=== PATIENT | female | born 1990 | race African-American/Black ===

== ENCOUNTER 2024-10-23 12:01 | Emergency (ER) | payer BC ==
[~2024-10-23] VITALS: Ht 157.5 cm; Wt 81.6 kg
[2024-10-23 12:18] VITALS: O2SAT 99
[2024-10-23 13:14] LABS: CHLORIDE 105 mEq/L (98-107); DIFFERENTIAL COMMENT 0; EOSINOPHILS % 1.4 % (0.0-5.0); HEMATOCRIT. 31.9 % (36.0-48.0); HEMOGLOBIN. 9.7 g/dL (12.0-16.0); LYMPHOCYTES % 29.4 % (20.0-50.0); MEAN CORPUSCULAR HEMOGLOBIN 22.3 pg (28.0-32.0); MEAN CORPUSCULAR HGB CONC 30.6 g/dL (31.0-37.0); MEAN CORPUSCULAR VOLUME 72.8 fL (81.0-99.0); MEAN PLATELET VOLUME 8.1 fl (7.4-10.4); MONOCYTES % 6.4 % (2.0-8.0); NEUTROPHILS % 61.8 % (40.0-76.0); PLATELET 428 x1000/uL (130-400); POTASSIUM 3.6 mEq/L (3.5-5.1); RED BLOOD CELL COUNT 4.37 mill/uL (4.2-5.4); RED CELL DISTRIBUTION WIDTH 16.6 % (11.6-14.6); SODIUM 136 mEq/L (136-145); WHITE BLOOD COUNT 8.1 x1000/uL (4.5-11.0)
[2024-10-23 13:15] LABS: CALCIUM 8.7 mg/dL (8.7-10.4); CARBON DIOXIDE 23 mEq/L (21-32)
[2024-10-23 13:17] LABS: CLARITY URINE CLOUDY (CLEAR); COLOR URINE YELLOW (YELLOW); GLUCOSE URINE 3+ (NEGATIVE); KETONES URINE TRACE (NEGATIVE); LEUKOCYTE ESTERASE URINE 1+ (NEGATIVE); NITRITE URINE NEGATIVE (NEGATIVE); OCCULT BLOOD URINE NEGATIVE (NEGATIVE); PH URINE 5.5 (4.5-8.0); PROTEIN URINE 1+ (NEGATIVE); SPECIFIC GRAVITY URINE 1.032 (1.005-1.030)
[2024-10-23 13:20] LABS: CREATININE 0.5 mg/dL (0.6-1.0); GLUCOSE 140 mg/dL (70-105); HCG SCREEN POSITIVE; UREA NITROGEN BLOOD 6 mg/dL (9-23)
[2024-10-23 13:55] VITALS: BP 142/98; PULSE 96; RESP 16; TEMP 36.9; O2SAT 100
[2024-10-23 14:10] LABS: MUCUS URINE TRACE /lpf (< = 2+); SQUAMOUS EPITHELIAL CELL URINE 3+ /lpf (RARE/1+)
[2024-10-23 14:12] LABS: BACTERIA URINE 1+
[2024-10-23 14:13] LABS: RBC URINE 0-2 /hpf (0-2)
== END 2024-10-23 13:40 | disposition short-term general hospital (02) ==
LOC: ER 12:01
DX: O60.03 Preterm labor without delivery, third trimester (principal); O10.913 Unspecified pre-existing hypertension complicating pregnancy, third trimester; O24.113 Pre-existing type 2 diabetes mellitus, in pregnancy, third trimester; Z3A.36 36 weeks gestation of pregnancy; Z88.0 Allergy status to penicillin
CPT/HCPCS: 80048; 81003; 82962; 84703; 85025; 86850; 86900; 86901; 36415; 76805; 99285; Z7610 ×2; A4606